=== PATIENT | female | born 1955 | race Caucasian/White ===

== ENCOUNTER 2016-08-01 04:09 | Inpatient (IN) | payer OTHER ==
[~2016-08-01] VITALS: Ht 167.6 cm; Wt 67.7 kg
[~2016-08-01 04:09] MED LIST: ALBUTEROL SULF8.5 GM IH; ALDACTONE50 MG PO; ANALGESIC325 M1 PO; ASPIR 8181 M1 PO; ASPIR-LOW81 MG PO; ASPIRIN325 MG PO; ATORVASTATIN CA20 MG PO; BUSPIRONE HCL15 MG PO; CALCIUM 600 +1 EAC1 PO; CATAPRES0.2 MG PO; CHLORDIAZEPOXID25 MG PO; CLONAZEPAM0.5 MG PO; CLONIDINE HCL0.1 MG PO; COUMADIN1 MG PO; CYMBALTA60 MG PO; Claritin,Alavart PO; DELZICOL400 MG PO; DULCOLAX10 MG PR; DULCOLAX5 MG PO; Depakote PO; ECOTRIN325 MG PO; ENDOCET 5-3251 EACH PO; FLUCONAZOLE100 MG PO; FLUOXETINE HCL40 MG PO; FOLIC ACID1 MG PO; Habitrol,Nicoderm CQ TD; JANTOVEN1 MG PO; KLONOPIN0.5 M1 PO; KLONOPIN1 MG PO; LIBRIUM25 MG PO; LINEZOLID600 MG PO; LIPITOR20 MG PO; LIPITOR80 MG PO; LO-DOSE ASPIRIN81 M1 PO; LOVENOX40 MG/0.4 SC; LOVENOX60 MG/0.6 SC; Lasix PO; MULTI-DAY VITA1 EACH PO; Melatonin PO; NITROSTAT0.4 MG SL; Nitrostat,NitroQuick SL; OMNICEF50 MG/1 ML PO; OXYGEN; PANTOPRAZOLE SO40 MG PO; PERCOCET 5/31 TABLET PO; PRILOSEC20 MG PO; PROTONIX40 MG PO; PROZAC40 MG PO; REMERON45 MG PO; SENEXON-S TABL1 EACH PO; SEROQUEL300 MG PO; SIMVASTATIN40 MG PO; SINEQUAN10 MG PO; SPIRIVA1 INHALATI IH; SPIRONOLACTONE50 MG PO; THERAGRAN1 TABLET PO; TRAMADOL HCL50 MG PO; TRAZODONE HCL50 MG PO; Theragran PO; Thiamine,Vitamin B1 PO; ULTRAM50 MG PO; VALIUM10 MG PO; VENTOLIN HFA18 GM IH; VITAMIN B-1100 MG PO; VITAMIN B12 100MCG PO; VITAMIN D1000 UNIT PO; Valium PO; XARELTO15 MG PO; ZANTAC150 MG PO; ZOFRAN4 MG PO; [UNRECOGNIZED DRUG - OTHER] TP; celeXA PO
[2016-08-01 05:39] LABS: CHLORIDE 104 mEq/L (99-109); POTASSIUM 3.3 mEq/L (3.7-5.4); SODIUM 137 mEq/L (136-147)
[2016-08-01 05:41] LABS: GLUCOSE 114 mg/dL (70-99)
[2016-08-01 05:43] LABS: ANION GAP 18 MEQ/L (2-14)
[2016-08-01 05:45] LABS: ALKALINE PHOSPHATASE 32 IU/L (3-129); GFR ESTIMATE (CALCULATED) 35 mL/min/
[2016-08-01 05:46] LABS: UREA NITROGEN (BUN) 17 mg/dL (9-23)
[2016-08-01 05:48] LABS: LIPASE 9 U/L (1.0-51.0); TROP-I INTERPRETATION NEGATIVE; TROPONIN-I 0.02 ng/mL (0.0-0.30)
[2016-08-01 05:50] LABS: INTER. NORMALIZED RATIO 1.4; PROTHROMBIN TIME 14.8 (9.2-11.2); PTT 42.5 (25-32)
[2016-08-01 06:24] LABS: HEMATOCRIT 42.1 % (36.0-46.0); MCH 36.1 PG (29.0-34.0); MCHC 34.4 G/DL (30.0-36.0); MCV 104.7 FL (83-99); NRBC (%) 0.3 /100 WBC (0-0); RBC DIS.WIDTH-CV 14.6 % (11.8-14.6); RBC DIS.WIDTH-SD 56.7 % (39-53); RED BLOOD COUNT 4.02 M/uL (3.80-5.20); WHITE BLOOD COUNT 9.3 K/uL (4.1-10.2)
[2016-08-01 06:34] LABS: CREATINE KINASE 1459 IU/L (1-294)
[2016-08-01] MEDS ORDERED: XARELTO20 MG PO (06:52)
[2016-08-01] MEDS ORDERED: QUETIAPINE FUM300 MG PO (06:55)
[2016-08-01] MEDS ORDERED: PROZAC20 MG PO (06:56)
[2016-08-01] MEDS ORDERED: TRAMADOL HCL50 MG PO (08:03)
[2016-08-01] MEDS ORDERED: VOLTAREN 1% GE100 GM TP (08:03)
[2016-08-01 08:06] LABS: ABS NEUTROPHIL COUNT 8.5; ANISOCYTOSIS 2+; BAND NEUTROPHILS 28.4 % (0-8.0); BURR CELLS 2+; EOSINOPHIL ABS CT 0; INSTRUMENT ABS NEUTROPHIL CT 8.2 K/uL; LYMPHOCYTES 2.8 % (15.0-45.0); MACROCYTES 2+; NUCLEATED RBC'S 1.8; PLAT.SUFFICIENCY DECREASED; PLATELET COUNT 91 K/uL (156-360); POIKILOCYTOSIS 3+; SEG.NEUTROPHILS 63.3 % (46.0-76.0)
[2016-08-01 14:50] VITALS: BP 112/73
[2016-08-01 15:15] LABS: INTER. NORMALIZED RATIO 1.3; PROTHROMBIN TIME 13.6 (9.2-11.2)
[2016-08-01 15:25] LABS: PTT 79.8 (25-32)
[2016-08-01 19:00] VITALS: BP 121/65
[2016-08-02 00:23] VITALS: BP 96/63
[2016-08-02 03:24] VITALS: BP 119/72
[2016-08-02 07:07] LABS: HEMATOCRIT 36.4 % (36.0-46.0); MCH 34.9 PG (29.0-34.0); MCHC 35.2 G/DL (30.0-36.0); MEAN PLAT.VOLUME 10.3 uM^3 (9.5-12.4); PLATELET COUNT 79 K/uL (156-360); RBC DIS.WIDTH-CV 14.1 % (11.8-14.6); RBC DIS.WIDTH-SD 51.5 % (39-53); RED BLOOD COUNT 3.67 M/uL (3.80-5.20)
[2016-08-02 07:11] LABS: MCV 99.2 FL (83-99); WHITE BLOOD COUNT 3.1 K/uL (4.1-10.2)
[2016-08-02 07:49] LABS: INTER. NORMALIZED RATIO 1.3; PROTHROMBIN TIME 12.9 (9.2-11.2)
[2016-08-02 07:51] LABS: ALKALINE PHOSPHATASE 23 IU/L (3-129); ANION GAP 14 MEQ/L (2-14); CHLORIDE 105 MEQ/L (99-109); CREATINE KINASE 780 IU/L (1-294); DIRECT BILIRUBIN 1.1 mg/dL (0.0-0.3); GFR ESTIMATE (CALCULATED) > 59 mL/min/; POTASSIUM 3.4 MEQ/L (3.7-5.4); SAMPLE HEMOLYSIS CHECK 0; SAMPLE ICTERIC CHECK 0; SAMPLE LIPEMIA CHECK 0; SODIUM 137 MEQ/L (136-147); TOTAL BILIRUBIN 1.6 MG/DL (0.0-1.0); UREA NITROGEN (BUN) 22 mg/dL (9-23)
[2016-08-02 07:52] LABS: GLUCOSE 76 mg/dL (70-99)
[2016-08-02 08:03] VITALS: BP 127/90
[2016-08-02 08:24] LABS: ABS NEUTROPHIL COUNT 2.9; ANISOCYTOSIS 2+; BAND NEUTROPHILS 13.8 % (0-8.0); BURR CELLS 2+; EOSINOPHIL ABS CT 0; INSTRUMENT ABS NEUTROPHIL CT 2.6 K/uL; LYMPHOCYTES 2.7 % (15.0-45.0); MACROCYTES 3+; METAMYELOCYTES 0.9 %; PLAT.SUFFICIENCY DECREASED; POIKILOCYTOSIS 2+; SEG.NEUTROPHILS 78.9 % (46.0-76.0)
[2016-08-02 17:12] VITALS: BP 100/61
[2016-08-02 20:01] VITALS: BP 102/66
[2016-08-02 22:20] LABS: AMPHETAMINES QUANT VALUE 0 NG/ML; BARBITUATES QUANT VALUE 0 NG/ML; BENZODIAZEPINES QUANT VALUE 0 NG/ML; BENZODIAZEPINES, URINE SCREEN Negative (200 ng/mL); PHENCYCLIDINE QUANT VALUE 0 NG/ML
[2016-08-02 23:27] VITALS: BP 99/57
[2016-08-03 05:06] VITALS: BP 91/54
[2016-08-03 07:35] LABS: INTER. NORMALIZED RATIO 1.2; PROTHROMBIN TIME 12.7 (9.2-11.2)
[2016-08-03 09:10] VITALS: BP 97/61
[2016-08-03 12:30] VITALS: BP 91/53
[2016-08-03 16:55] VITALS: BP 80/53
[2016-08-03 20:17] VITALS: BP 85/58
[2016-08-04 00:25] VITALS: BP 84/53
[2016-08-04 04:07] VITALS: BP 91/57
[2016-08-04 05:06] LABS: INTER. NORMALIZED RATIO 1.6; PROTHROMBIN TIME 16.7 (9.2-11.2)
[2016-08-04 08:03] VITALS: BP 100/60
[2016-08-04 10:01] LABS: HEMATOCRIT 28.8 % (36.0-46.0); MCH 35.3 PG (29.0-34.0); MCHC 35.8 G/DL (30.0-36.0); MCV 98.6 FL (83-99); RBC DIS.WIDTH-CV 14.8 % (11.8-14.6); RBC DIS.WIDTH-SD 53.3 % (39-53); RED BLOOD COUNT 2.92 M/uL (3.80-5.20); WHITE BLOOD COUNT 2.9 K/uL (4.1-10.2)
[2016-08-04 10:50] LABS: ABS NEUTROPHIL COUNT 2.5; ANISOCYTOSIS 1+; ATYPICAL LYMPHOCYTE 0.9 %; EOSINOPHIL ABS CT 0.1; EOSINOPHILS 2.6 % (0-5.0); INSTRUMENT ABS NEUTROPHIL CT 2.2 K/uL; LYMPHOCYTES 7.1 % (15.0-45.0); MACROCYTES 1+; MEAN PLAT.VOLUME 9.6 uM^3 (9.5-12.4); MYELOCYTES 0.9 %; PLAT.SUFFICIENCY DECREASED; SEG.NEUTROPHILS 87.6 % (46.0-76.0); TARGET CELLS 1+
[2016-08-04 10:51] LABS: PLATELET COUNT 53 K/uL (156-360)
[2016-08-04 11:49] VITALS: BP 83/51
[2016-08-04 16:35] VITALS: BP 90/54
[2016-08-05 00:18] VITALS: BP 90/54
[2016-08-05 06:29] LABS: INTER. NORMALIZED RATIO 2.8
[2016-08-05 06:33] LABS: PROTHROMBIN TIME 29.8 (9.2-11.2)
[2016-08-05 07:02] LABS: ANION GAP 13 MEQ/L (2-14); CHLORIDE 110 MEQ/L (99-109); GFR ESTIMATE (CALCULATED) > 59 mL/min/; GLUCOSE 52 mg/dL (70-99); SAMPLE HEMOLYSIS CHECK 0; SAMPLE ICTERIC CHECK 0; SAMPLE LIPEMIA CHECK 0; SODIUM 139 MEQ/L (136-147); UREA NITROGEN (BUN) 13 mg/dL (9-23)
[2016-08-05 07:06] LABS: ALKALINE PHOSPHATASE 64 IU/L (3-129); DIRECT BILIRUBIN 0.4 mg/dL (0.0-0.3); POTASSIUM 2.5 MEQ/L (3.7-5.4); TOTAL BILIRUBIN 0.8 MG/DL (0.0-1.0)
[2016-08-05 07:20] LABS: HEMATOCRIT 27.3 % (36.0-46.0); MCH 35.7 PG (29.0-34.0); MCHC 37.4 G/DL (30.0-36.0); MCV 95.5 FL (83-99); MEAN PLAT.VOLUME 10.6 uM^3 (9.5-12.4); PLATELET COUNT 65 K/uL (156-360); RBC DIS.WIDTH-SD 52.3 % (39-53); RED BLOOD COUNT 2.86 M/uL (3.80-5.20); WHITE BLOOD COUNT 3.6 K/uL (4.1-10.2)
[2016-08-05 07:57] VITALS: BP 119/68
[2016-08-05 10:03] LABS: BASE EXCESS -8.5 mEq/L (-3 to +3); BICARBONATE 14.3 mEq/L (22-26); CARBOXY HGB 1.7 % (0-5); COMMENTS - BLOOD GASES A+C+; METHEMOGLOBIN 1.7 % (0-1.5); PCO2 22 mm Hg (35-45); PO2 56 mm Hg (80-100); SITE RR; pH 7.42 (7.35-7.45)
[2016-08-05 10:04] LABS: DEVICE HFNC; O2 FLOW 7 L/MIN; TOTAL RESP RATE 24 resp/min
[2016-08-05 16:12] VITALS: BP 107/68
[2016-08-05 23:41] VITALS: BP 114/71
[2016-08-06 06:34] LABS: INTER. NORMALIZED RATIO 1.1; PROTHROMBIN TIME 11.4 (9.2-11.2)
[2016-08-06 06:56] LABS: ALKALINE PHOSPHATASE 67 IU/L (3-129); ANION GAP 14 MEQ/L (2-14); CHLORIDE 109 MEQ/L (99-109); DIRECT BILIRUBIN 0.7 mg/dL (0.0-0.3); GFR ESTIMATE (CALCULATED) > 59 mL/min/; GLUCOSE 74 mg/dL (70-99); POTASSIUM 2.7 MEQ/L (3.7-5.4); SAMPLE HEMOLYSIS CHECK 0; SAMPLE ICTERIC CHECK 0; SAMPLE LIPEMIA CHECK 0; SODIUM 138 MEQ/L (136-147); UREA NITROGEN (BUN) 10 mg/dL (9-23)
[2016-08-06 06:58] LABS: TOTAL BILIRUBIN 1.3 MG/DL (0.0-1.0)
[2016-08-06 07:20] LABS: MCH 36.2 PG (29.0-34.0); MEAN PLAT.VOLUME 10.9 uM^3 (9.5-12.4); PLATELET COUNT 69 K/uL (156-360); RBC DIS.WIDTH-CV 15.3 % (11.8-14.6); RED BLOOD COUNT 2.93 M/uL (3.80-5.20); WHITE BLOOD COUNT 8.2 K/uL (4.1-10.2)
[2016-08-06 07:22] LABS: MCV 109 FL (83-99)
[2016-08-06 07:23] LABS: MCHC 33.1 G/DL (30.0-36.0)
[2016-08-06 08:01] VITALS: BP 108/68
[2016-08-06 11:59] LABS: C DIFF TOXIN NEGATIVE (NEGATIVE)
[2016-08-06 12:00] LABS: PROBE CHECK PASS; SPECIMEN PROCESSING CONTROL PASS
[2016-08-06 17:12] VITALS: BP 116/71
[2016-08-06 23:42] VITALS: BP 117/72
[2016-08-07 05:18] LABS: HEMATOCRIT 28.4 % (36.0-46.0); MCH 35.3 PG (29.0-34.0); MCHC 37.3 G/DL (30.0-36.0); MEAN PLAT.VOLUME 11.5 uM^3 (9.5-12.4); PLATELET COUNT 67 K/uL (156-360); RBC DIS.WIDTH-CV 15.5 % (11.8-14.6); RBC DIS.WIDTH-SD 53.1 % (39-53)
[2016-08-07 05:20] LABS: MCV 94.7 FL (83-99)
[2016-08-07 05:26] LABS: INTER. NORMALIZED RATIO 1.1; PROTHROMBIN TIME 11.6 (9.2-11.2)
[2016-08-07 06:36] LABS: ALKALINE PHOSPHATASE 62 IU/L (3-129); ANION GAP 10 MEQ/L (2-14); CHLORIDE 112 MEQ/L (99-109); DIRECT BILIRUBIN 0.8 mg/dL (0.0-0.3); GFR ESTIMATE (CALCULATED) > 59 mL/min/; GLUCOSE 82 mg/dL (70-99); POTASSIUM 3.1 MEQ/L (3.7-5.4); SAMPLE HEMOLYSIS CHECK 0; SAMPLE ICTERIC CHECK 0; SAMPLE LIPEMIA CHECK 0; SODIUM 139 MEQ/L (136-147); TOTAL BILIRUBIN 1.2 MG/DL (0.0-1.0); UREA NITROGEN (BUN) 9 mg/dL (9-23)
[2016-08-07 08:28] VITALS: BP 124/76
[2016-08-07 13:39] LABS: BASE EXCESS -4.7 mEq/L (-3 to +3); BICARBONATE 17.5 mEq/L (22-26); CARBOXY HGB 2.2 % (0-5); COMMENTS - BLOOD GASES A+C+; DEVICE HFNC; MECHANICAL RATE 20 resp/min; METHEMOGLOBIN 1.3 % (0-1.5); O2 FLOW 15 L/MIN; PCO2 23 mm Hg (35-45); PO2 59 mm Hg (80-100); SITE RRA; pH 7.49 (7.35-7.45)
[2016-08-07 16:12] VITALS: BP 117/81
[2016-08-07 20:05] VITALS: BP 110/70
[2016-08-07 23:52] VITALS: BP 109/71
[2016-08-08 05:05] LABS: HEMATOCRIT 26.7 % (36.0-46.0); MCH 35.7 PG (29.0-34.0); MCHC 37.1 G/DL (30.0-36.0); MCV 96.4 FL (83-99); MEAN PLAT.VOLUME 11.7 uM^3 (9.5-12.4); PLATELET COUNT 73 K/uL (156-360); RBC DIS.WIDTH-CV 15.5 % (11.8-14.6); RBC DIS.WIDTH-SD 53.9 % (39-53); RED BLOOD COUNT 2.77 M/uL (3.80-5.20); WHITE BLOOD COUNT 9.2 K/uL (4.1-10.2)
[2016-08-08 05:13] LABS: INTER. NORMALIZED RATIO 1.3; PROTHROMBIN TIME 13.3 (9.2-11.2)
[2016-08-08 05:33] LABS: ANION GAP 10 MEQ/L (2-14); CHLORIDE 111 MEQ/L (99-109); GFR ESTIMATE (CALCULATED) > 59 mL/min/; GLUCOSE 80 mg/dL (70-99); POTASSIUM 3.3 MEQ/L (3.7-5.4); SAMPLE HEMOLYSIS CHECK 0; SAMPLE ICTERIC CHECK 0; SAMPLE LIPEMIA CHECK 0; SODIUM 138 MEQ/L (136-147); UREA NITROGEN (BUN) 8 mg/dL (9-23)
[2016-08-08 08:22] VITALS: BP 110/65
[2016-08-08 16:24] VITALS: BP 124/70
[2016-08-08 23:31] VITALS: BP 119/72
[2016-08-09 03:28] VITALS: BP 100/57
[2016-08-09 04:53] LABS: HEMATOCRIT 25.2 % (36.0-46.0); MCH 35.3 PG (29.0-34.0); MCHC 37.3 G/DL (30.0-36.0); MCV 94.7 FL (83-99); MEAN PLAT.VOLUME 11.2 uM^3 (9.5-12.4); PLATELET COUNT 75 K/uL (156-360); RBC DIS.WIDTH-CV 15.4 % (11.8-14.6); RBC DIS.WIDTH-SD 52.8 % (39-53); RED BLOOD COUNT 2.66 M/uL (3.80-5.20); WHITE BLOOD COUNT 9.5 K/uL (4.1-10.2)
[2016-08-09 05:00] LABS: INTER. NORMALIZED RATIO 1.7; PROTHROMBIN TIME 17.3 (9.2-11.2)
[2016-08-09 05:12] LABS: CHLORIDE 110 mEq/L (99-109); POTASSIUM 3.3 mEq/L (3.7-5.4); SODIUM 136 mEq/L (136-147)
[2016-08-09 05:14] LABS: GLUCOSE 82 mg/dL (70-99)
[2016-08-09 05:16] LABS: ANION GAP 9 MEQ/L (2-14)
[2016-08-09 05:18] LABS: GFR ESTIMATE (CALCULATED) > 59 mL/min/
[2016-08-09 05:19] LABS: UREA NITROGEN (BUN) 7 mg/dL (9-23)
[2016-08-09 06:54] LABS: ALKALINE PHOSPHATASE 65 IU/L (3-129)
[2016-08-09 06:57] LABS: DIRECT BILIRUBIN 0.7 mg/dL (0.0-0.3)
[2016-08-09 07:51] VITALS: BP 106/62
[2016-08-09 12:15] VITALS: BP 106/68
[2016-08-09 16:11] VITALS: BP 112/72
[2016-08-09 23:33] VITALS: BP 96/62
[2016-08-10 03:44] VITALS: BP 104/71
[2016-08-10 05:57] LABS: INTER. NORMALIZED RATIO 1.5; PROTHROMBIN TIME 15.2 (9.2-11.2)
[2016-08-10 06:14] LABS: ALKALINE PHOSPHATASE 57 IU/L (3-129); ANION GAP 8 MEQ/L (2-14); CHLORIDE 109 MEQ/L (99-109); DIRECT BILIRUBIN 0.4 mg/dL (0.0-0.3); GFR ESTIMATE (CALCULATED) > 59 mL/min/; GLUCOSE 72 mg/dL (70-99); POTASSIUM 3.5 MEQ/L (3.7-5.4); SAMPLE HEMOLYSIS CHECK 0; SAMPLE ICTERIC CHECK 0; SAMPLE LIPEMIA CHECK 0; SODIUM 137 MEQ/L (136-147); UREA NITROGEN (BUN) 6 mg/dL (9-23)
[2016-08-10 06:17] LABS: TOTAL BILIRUBIN 0.8 MG/DL (0.0-1.0)
[2016-08-10 06:25] LABS: HEMATOCRIT 24.1 % (36.0-46.0); MCH 35.5 PG (29.0-34.0); MCHC 36.5 G/DL (30.0-36.0); MCV 97.2 FL (83-99); MEAN PLAT.VOLUME 11.4 uM^3 (9.5-12.4); PLATELET COUNT 72 K/uL (156-360); RBC DIS.WIDTH-SD 56.2 % (39-53); RED BLOOD COUNT 2.48 M/uL (3.80-5.20)
[2016-08-10 06:26] LABS: WHITE BLOOD COUNT 6.5 K/uL (4.1-10.2)
[2016-08-10 07:50] VITALS: BP 106/69
[2016-08-10 12:25] VITALS: BP 113/74
[2016-08-10 15:56] VITALS: BP 108/65
[2016-08-10 20:18] VITALS: BP 113/71
[2016-08-10 23:06] VITALS: BP 108/68
[2016-08-11 04:36] VITALS: BP 111/66
[2016-08-11 06:14] LABS: EOSINOPHIL (%) 2.7 % (0-5); EOSINOPHIL COUNT 0.2 K/uL (0-0.3); HEMATOCRIT 22.3 % (36.0-46.0); IMMATURE GRANULOCYTE (%) 2.2 % (0.0-0.7); IMMATURE GRANULOCYTE COUNT 0.1 K/uL; INSTRUMENT ABS NEUTROPHIL CT 4.8 K/uL; MCH 34.9 PG (29.0-34.0); MCHC 35.9 G/DL (30.0-36.0); MCV 97.4 FL (83-99); MEAN PLAT.VOLUME 10.9 uM^3 (9.5-12.4); MONOCYTE (%) 4.6 % (3-12); MONOCYTE COUNT 0.3 K/uL (0-0.8); NEUTROPHIL COUNT 4.8 K/uL (1.8-6.4); PLATELET COUNT 82 K/uL (156-360); RBC DIS.WIDTH-CV 15.9 % (11.8-14.6); RBC DIS.WIDTH-SD 57.4 % (39-53); RED BLOOD COUNT 2.29 M/uL (3.80-5.20); WHITE BLOOD COUNT 6.4 K/uL (4.1-10.2)
[2016-08-11 06:23] LABS: INTER. NORMALIZED RATIO 1.4; PROTHROMBIN TIME 14.7 (9.2-11.2)
[2016-08-11 07:05] LABS: ALKALINE PHOSPHATASE 61 IU/L (3-129); ANION GAP 7 MEQ/L (2-14); CHLORIDE 110 MEQ/L (99-109); GFR ESTIMATE (CALCULATED) > 59 mL/min/; GLUCOSE 74 mg/dL (70-99); POTASSIUM 3.6 MEQ/L (3.7-5.4); SAMPLE HEMOLYSIS CHECK 0; SAMPLE ICTERIC CHECK 0; SAMPLE LIPEMIA CHECK 0; SODIUM 137 MEQ/L (136-147); TOTAL BILIRUBIN 0.7 MG/DL (0.0-1.0); UREA NITROGEN (BUN) 5 mg/dL (9-23)
[2016-08-11 08:01] VITALS: BP 110/71
[2016-08-11 11:08] VITALS: BP 91/59
[2016-08-11 16:07] VITALS: BP 100/61
[2016-08-11 20:34] VITALS: BP 100/55
[2016-08-11 23:35] VITALS: BP 100/64
[2016-08-12 04:49] VITALS: BP 99/60
[2016-08-12 05:26] LABS: HEMATOCRIT 22.3 % (36.0-46.0); MCH 35.6 PG (29.0-34.0); MCHC 35.9 G/DL (30.0-36.0); MCV 99.1 FL (83-99); MEAN PLAT.VOLUME 11.6 uM^3 (9.5-12.4); PLATELET COUNT 83 K/uL (156-360); RBC DIS.WIDTH-CV 16.5 % (11.8-14.6); RBC DIS.WIDTH-SD 59.2 % (39-53); RED BLOOD COUNT 2.25 M/uL (3.80-5.20); WHITE BLOOD COUNT 5.7 K/uL (4.1-10.2)
[2016-08-12 05:37] LABS: INTER. NORMALIZED RATIO 1.2; PROTHROMBIN TIME 11.9 (9.2-11.2)
[2016-08-12 05:53] LABS: ALKALINE PHOSPHATASE 61 IU/L (3-129); ANION GAP 6 MEQ/L (2-14); CHLORIDE 110 MEQ/L (99-109); GFR ESTIMATE (CALCULATED) > 59 mL/min/; GLUCOSE 78 mg/dL (70-99); POTASSIUM 4.6 MEQ/L (3.7-5.4); SAMPLE HEMOLYSIS CHECK 0; SAMPLE ICTERIC CHECK 0; SAMPLE LIPEMIA CHECK 0; SODIUM 137 MEQ/L (136-147); TOTAL BILIRUBIN 0.6 MG/DL (0.0-1.0); UREA NITROGEN (BUN) 5 mg/dL (9-23)
[2016-08-12 07:46] VITALS: BP 100/65
[2016-08-12 12:16] VITALS: BP 97/61
[2016-08-12 16:30] VITALS: BP 105/66
[2016-08-12 19:18] VITALS: BP 90/62
[2016-08-12 23:40] VITALS: BP 144/65
[2016-08-13 03:22] VITALS: BP 111/72
[2016-08-13 06:12] LABS: INTER. NORMALIZED RATIO 1.1; PROTHROMBIN TIME 11.5 (9.2-11.2)
[2016-08-13 06:13] LABS: HEMATOCRIT 22.3 % (36.0-46.0); MCH 35.4 PG (29.0-34.0); MCHC 35.9 G/DL (30.0-36.0); MCV 98.7 FL (83-99); MEAN PLAT.VOLUME 11.4 uM^3 (9.5-12.4); RBC DIS.WIDTH-CV 16.3 % (11.8-14.6); RBC DIS.WIDTH-SD 58.9 % (39-53); RED BLOOD COUNT 2.26 M/uL (3.80-5.20); WHITE BLOOD COUNT 5.6 K/uL (4.1-10.2)
[2016-08-13 06:15] LABS: PLATELET COUNT 133 K/uL (156-360)
[2016-08-13 06:35] LABS: ANION GAP 5 MEQ/L (2-14); CHLORIDE 106 MEQ/L (99-109); GFR ESTIMATE (CALCULATED) > 59 mL/min/; GLUCOSE 73 mg/dL (70-99); POTASSIUM 4.4 MEQ/L (3.7-5.4); SAMPLE HEMOLYSIS CHECK 0; SAMPLE ICTERIC CHECK 0; SAMPLE LIPEMIA CHECK 0; SODIUM 135 MEQ/L (136-147); UREA NITROGEN (BUN) 5 mg/dL (9-23)
[2016-08-13 07:16] VITALS: BP 107/75
[2016-08-13 11:00] VITALS: BP 103/65
[2016-08-13 13:13] LABS: TROP-I INTERPRETATION NEGATIVE
[2016-08-13 16:19] VITALS: BP 110/63
[2016-08-13 20:30] VITALS: BP 112/65
[2016-08-14 00:06] VITALS: BP 101/69
[2016-08-14 05:30] VITALS: BP 111/69
[2016-08-14 06:50] LABS: ANION GAP 6 MEQ/L (2-14); CHLORIDE 105 MEQ/L (99-109); GFR ESTIMATE (CALCULATED) > 59 mL/min/; GLUCOSE 81 mg/dL (70-99); POTASSIUM 4.1 MEQ/L (3.7-5.4); SAMPLE HEMOLYSIS CHECK 0; SAMPLE ICTERIC CHECK 0; SAMPLE LIPEMIA CHECK 0; SODIUM 138 MEQ/L (136-147); UREA NITROGEN (BUN) 5 mg/dL (9-23)
[2016-08-14 06:54] LABS: INTER. NORMALIZED RATIO 1.1; PROTHROMBIN TIME 11.4 (9.2-11.2)
[2016-08-14 08:07] VITALS: BP 108/66
[2016-08-14 11:51] VITALS: BP 95/59
[2016-08-14 16:26] VITALS: BP 87/54
[2016-08-14 20:21] VITALS: BP 93/60
[2016-08-15 00:29] VITALS: BP 90/55
[2016-08-15 04:31] VITALS: BP 93/56
[2016-08-15 08:24] VITALS: BP 121/69
[2016-08-15 12:01] VITALS: BP 83/54
[2016-08-15 15:41] VITALS: BP 90/62
[2016-08-15 15:52] LABS: INTER. NORMALIZED RATIO 1.2; PROTHROMBIN TIME 12.7 (9.2-11.2)
[2016-08-15 18:17] LABS: MCH 34.6 PG (29.0-34.0); MCHC 34.6 G/DL (30.0-36.0); PLATELET COUNT 341 K/uL (156-360); RBC DIS.WIDTH-SD 58.6 % (39-53); WHITE BLOOD COUNT 4.3 K/uL (4.1-10.2)
[2016-08-15 19:47] VITALS: BP 98/60
[2016-08-16 00:18] VITALS: BP 104/65
[2016-08-16 04:30] VITALS: BP 109/58
[2016-08-16 08:15] LABS: MCHC 34.6 G/DL (30.0-36.0); MCV 101.3 FL (83-99); PLATELET COUNT 389 K/uL (156-360); RBC DIS.WIDTH-CV 16.3 % (11.8-14.6); RBC DIS.WIDTH-SD 60.2 % (39-53); RED BLOOD COUNT 2.37 M/uL (3.80-5.20); WHITE BLOOD COUNT 4.1 K/uL (4.1-10.2)
[2016-08-16 08:33] VITALS: BP 178/97
[2016-08-16 09:17] LABS: ANION GAP 6 MEQ/L (2-14); CHLORIDE 104 MEQ/L (99-109); GFR ESTIMATE (CALCULATED) > 59 mL/min/; GLUCOSE 76 mg/dL (70-99); SAMPLE HEMOLYSIS CHECK 0; SAMPLE ICTERIC CHECK 0; SAMPLE LIPEMIA CHECK 0; SODIUM 139 MEQ/L (136-147); UREA NITROGEN (BUN) 8 mg/dL (9-23)
[2016-08-16 09:25] LABS: INTER. NORMALIZED RATIO 1.3; PROTHROMBIN TIME 13.7 (9.2-11.2)
[2016-08-16 16:25] VITALS: BP 100/66
[2016-08-16 20:17] VITALS: BP 104/66
[2016-08-16 23:38] VITALS: BP 98/74
[2016-08-17 04:52] VITALS: BP 106/64
[2016-08-17 07:40] VITALS: BP 103/69
[2016-08-17 08:06] LABS: BASOPHIL COUNT 0.1 K/uL (0-0.1); EOSINOPHIL COUNT 0.2 K/uL (0-0.3); HEMATOCRIT 26.1 % (36.0-46.0); IMMATURE GRANULOCYTE (%) 1.4 % (0.0-0.7); IMMATURE GRANULOCYTE COUNT 0.1 K/uL; INSTRUMENT ABS NEUTROPHIL CT 2.8 K/uL; LYMPHOCYTE COUNT 1.4 K/uL (1.0-2.8); MCH 34.8 PG (29.0-34.0); MCHC 34.1 G/DL (30.0-36.0); MEAN PLAT.VOLUME 9.3 uM^3 (9.5-12.4); MONOCYTE (%) 9.7 % (3-12); MONOCYTE COUNT 0.5 K/uL (0-0.8); NEUTROPHIL (%) 57.3 % (45-76); NEUTROPHIL COUNT 2.8 K/uL (1.8-6.4); PLATELET COUNT 432 K/uL (156-360); RBC DIS.WIDTH-CV 15.9 % (11.8-14.6); RBC DIS.WIDTH-SD 59.8 % (39-53); RED BLOOD COUNT 2.56 M/uL (3.80-5.20)
[2016-08-17 08:37] LABS: ALKALINE PHOSPHATASE 67 IU/L (3-129); ANION GAP 6 MEQ/L (2-14); CHLORIDE 102 MEQ/L (99-109); GFR ESTIMATE (CALCULATED) > 59 mL/min/; GLUCOSE 84 mg/dL (70-99); POTASSIUM 4.2 MEQ/L (3.7-5.4); SAMPLE HEMOLYSIS CHECK 0; SAMPLE ICTERIC CHECK 0; SAMPLE LIPEMIA CHECK 0; SODIUM 137 MEQ/L (136-147); UREA NITROGEN (BUN) 9 mg/dL (9-23)
[2016-08-17 08:41] LABS: TOTAL BILIRUBIN 0.4 MG/DL (0.0-1.0)
[2016-08-17 09:31] LABS: INTER. NORMALIZED RATIO 1.7
[2016-08-17 10:43] VITALS: BP 109/70
[2016-08-17 16:08] VITALS: BP 98/59
[2016-08-17 23:20] VITALS: BP 110/64
[2016-08-18 06:51] LABS: BASOPHIL COUNT 0.1 K/uL (0-0.1); EOSINOPHIL (%) 2.8 % (0-5); EOSINOPHIL COUNT 0.1 K/uL (0-0.3); HEMATOCRIT 28.7 % (36.0-46.0); IMMATURE GRANULOCYTE COUNT 0.1 K/uL; INSTRUMENT ABS NEUTROPHIL CT 2.4 K/uL; LYMPHOCYTE COUNT 1.4 K/uL (1.0-2.8); MCH 34.4 PG (29.0-34.0); MCHC 33.1 G/DL (30.0-36.0); MEAN PLAT.VOLUME 9.4 uM^3 (9.5-12.4); MONOCYTE (%) 10.9 % (3-12); MONOCYTE COUNT 0.5 K/uL (0-0.8); NEUTROPHIL (%) 51.4 % (45-76); NEUTROPHIL COUNT 2.4 K/uL (1.8-6.4); PLATELET COUNT 492 K/uL (156-360); RBC DIS.WIDTH-SD 61.9 % (39-53); RED BLOOD COUNT 2.76 M/uL (3.80-5.20); WHITE BLOOD COUNT 4.6 K/uL (4.1-10.2)
[2016-08-18 07:08] LABS: INTER. NORMALIZED RATIO 1.9; PROTHROMBIN TIME 20.1 (9.2-11.2)
[2016-08-18 07:20] VITALS: BP 111/67
[2016-08-18 07:21] LABS: ALKALINE PHOSPHATASE 76 IU/L (3-129); ANION GAP 7 MEQ/L (2-14); CHLORIDE 103 MEQ/L (99-109); GFR ESTIMATE (CALCULATED) > 59 mL/min/; GLUCOSE 94 mg/dL (70-99); POTASSIUM 4.5 MEQ/L (3.7-5.4); SAMPLE HEMOLYSIS CHECK 0; SAMPLE ICTERIC CHECK 0; SAMPLE LIPEMIA CHECK 0; SODIUM 138 MEQ/L (136-147); TOTAL BILIRUBIN 0.4 MG/DL (0.0-1.0); UREA NITROGEN (BUN) 11 mg/dL (9-23)
[2016-08-18 15:59] VITALS: BP 96/53
[2016-08-19 00:04] VITALS: BP 111/71
[2016-08-19 04:26] VITALS: BP 109/70
[2016-08-19 07:02] LABS: INTER. NORMALIZED RATIO 1.8; PROTHROMBIN TIME 18.2 (9.2-11.2)
[2016-08-19 07:35] VITALS: BP 115/63
[2016-08-19 11:23] VITALS: BP 102/63
[2016-08-19] MEDS ORDERED: BENADRYL25 MG PO (13:13)
[2016-08-19] MEDS ORDERED: CEPHALEXIN500 MG PO (13:13)
[2016-08-19] MEDS ORDERED: XARELTO15 MG PO (13:17)
[2016-08-19 15:15] VITALS: BP 108/66
== END 2016-08-19 17:23 | DRG 872 ==
LOC: EME 04:09 → 3EAST 09:28 → EDOF 09:28 → 4EAST 14:19 → 3EAST 08-03 14:45
PROVIDERS: Emergency Medicine; Internal Medicine; Internal Medicine Hematology & Oncology; Internal Medicine Pulmonary Disease; Nurse Practitioner Adult Health; Pediatrics; Physician Assistant; Physician Assistant Medical
DX: A41.9 Sepsis, unspecified organism (principal); K92.2 Gastrointestinal hemorrhage, unspecified; L03.114 Cellulitis of left upper limb; I10 Essential (primary) hypertension; J44.9 Chronic obstructive pulmonary disease, unspecified; F41.9 Anxiety disorder, unspecified; F10.10 Alcohol abuse, uncomplicated; E78.5 Hyperlipidemia, unspecified; K21.9 Gastro-esophageal reflux disease without esophagitis; F19.10 Other psychoactive substance abuse, uncomplicated; I50.9 Heart failure, unspecified; F17.210 Nicotine dependence, cigarettes, uncomplicated; I48.91 Unspecified atrial fibrillation; D69.6 Thrombocytopenia, unspecified; I25.10 Atherosclerotic heart disease of native coronary artery without angina pectoris; F32.9 Major depressive disorder, single episode, unspecified; Z86.711 Personal history of pulmonary embolism; Z86.718 Personal history of other venous thrombosis and embolism; Z95.5 Presence of coronary angioplasty implant and graft; Z91.14 Patient's other noncompliance with medication regimen; I25.2 Old myocardial infarction
CPT/HCPCS: 36600; 70450; 71010; 71020; 71275; 73030; 73090; 73130; 73200; 73206; 73220; 73590; 74177; 80048; 80048 91; 80053; 80069; 80076; 80306 90; 82140; 82330; 82550; 82803; 83605; 83690; 83880; 84484; 85025; 85027; 85610; 85730; 87040; 87070; 87075; 87077; 87186; 87205; 87493; 87801; 93005; 93306; 94010; 94640; 94640 76; 94667; 94668; 94760; 94799; 97530 GO; 97530 GP; 99202; 99281; 99285; G0480; J0610; J0690; J1200; J1650; J2185; J2405; J2765; J3010; J3420; J3475; J3480; J7030; J7040; J7050

== ENCOUNTER 2016-08-27 08:47 | Day surgery (SDC) | payer OTHER ==
[~2016-08-27] VITALS: Ht 160 cm; Wt 62.1 kg
[~2016-08-27 08:47] MED LIST changes: +BENADRYL25 MG PO; +CEPHALEXIN500 MG PO; +NORCO 5/3251 TABLET PO; +PROZAC20 MG PO; +QUETIAPINE FUM300 MG PO; +TYLENOL EXTRA500 MG PO; +VOLTAREN 1% GE100 GM TP; +XARELTO20 MG PO
== END 2016-08-27 09:15 ==
LOC: SDC 08:47
PROC: 0JJ Subcutaneous Tissue and Fascia, Inspection (ICD-10-PCS; principal; 2016-08-27)
DX: S41.102A Unspecified open wound of left upper arm, initial encounter (principal); Z53.09 Procedure and treatment not carried out because of other contraindication; I51.9 Heart disease, unspecified

== ENCOUNTER 2016-08-31 17:16 | Emergency (ER) | payer OTHER ==
[~2016-08-31] VITALS: Ht 170.2 cm; Wt 68.4 kg
[2016-08-31 18:20] LABS: BASOPHIL COUNT 0.1 K/uL (0-0.1); EOSINOPHIL (%) 0.6 % (0-5); EOSINOPHIL COUNT 0.1 K/uL (0-0.3); HEMATOCRIT 34.1 % (36.0-46.0); IMMATURE GRANULOCYTE (%) 0.6 % (0.0-0.7); IMMATURE GRANULOCYTE COUNT 0.1 K/uL; INSTRUMENT ABS NEUTROPHIL CT 9.1 K/uL; LYMPHOCYTE COUNT 1.8 K/uL (1.0-2.8); MCH 33.2 PG (29.0-34.0); MCHC 33.1 G/DL (30.0-36.0); MCV 100.3 FL (83-99); MEAN PLAT.VOLUME 9.4 uM^3 (9.5-12.4); MONOCYTE COUNT 0.5 K/uL (0-0.8); NEUTROPHIL (%) 78.9 % (45-76); NEUTROPHIL COUNT 9.1 K/uL (1.8-6.4); PLATELET COUNT 346 K/uL (156-360); RBC DIS.WIDTH-CV 15.2 % (11.8-14.6); RBC DIS.WIDTH-SD 56.2 % (39-53); WHITE BLOOD COUNT 11.6 K/uL (4.1-10.2)
[2016-08-31 18:28] LABS: CHLORIDE 103 mEq/L (99-109); POTASSIUM 4.3 mEq/L (3.7-5.4); SODIUM 137 mEq/L (136-147)
[2016-08-31 18:30] LABS: GLUCOSE 66 mg/dL (70-99)
[2016-08-31 18:31] LABS: ANION GAP 13 MEQ/L (2-14)
[2016-08-31 18:33] LABS: GFR ESTIMATE (CALCULATED) > 59 mL/min/
[2016-08-31 18:34] LABS: UREA NITROGEN (BUN) 11 mg/dL (9-23)
[2016-08-31 18:44] LABS: INTER. NORMALIZED RATIO 1.5; PROTHROMBIN TIME 15.4 (9.2-11.2); PTT 48.8 (25-32)
[2016-08-31 18:46] LABS: ADD MIUA? NO; BILIRUBIN NEGATIVE; BLOOD NEGATIVE; COLOR YELLOW ((YELLOW)); GLUCOSE (STRIP) NEGATIVE; KETONES NEGATIVE; LEUKOCYTES NEGATIVE; NITRITE NEGATIVE; PROTEIN (STRIP) NEGATIVE; SPECIFIC GRAVITY 1.016 (1.000-1.030); UCUL ADDED? NO; UROBILINOGEN 0.2 MG/DL (0.2-1.0)
[2016-08-31] MEDS ORDERED: SALINE NASAL SP45 ML BOTH NARES (20:58)
[2016-08-31] MEDS ORDERED: AFRIN,GENASAL D15 ML BOTH NARES (20:59)
[2016-08-31] MEDS ORDERED: DURAGESIC25 MCG TD (20:59)
[2016-08-31] MEDS ORDERED: NEURONTIN300 MG PO (21:01)
[2016-08-31] MEDS ORDERED: BENADRYL25 MG PO (21:06)
[2016-08-31] MEDS ORDERED: XARELTO15 MG PO (21:07)
[2016-08-31] MEDS ORDERED: XARELTO20 MG PO (21:08)
[2016-08-31 23:23] VITALS: BP 103/67
== END 2016-08-31 23:28 | disposition short-term general hospital (02) ==
LOC: EME 17:16
PROVIDERS: Emergency Medicine
PROC: 05HP33Z Insertion of Infusion Device into Right External Jugular Vein, Percutaneous Approach (ICD-10-PCS; principal; 2016-08-31)
DX: A41.9 Sepsis, unspecified organism (principal); I95.9 Hypotension, unspecified; L03.114 Cellulitis of left upper limb; I10 Essential (primary) hypertension; I25.2 Old myocardial infarction; K21.9 Gastro-esophageal reflux disease without esophagitis; F17.200 Nicotine dependence, unspecified, uncomplicated; Z98.61 Coronary angioplasty status
CPT/HCPCS: 71010; 71020; 73200; 80048; 81003; 83605; 85025; 85610; 85730; 87040; 93005; 99281; 99285; J0692; J2020; J7030; J7050

== ENCOUNTER 2016-09-13 21:22 | Observation (INO) | payer OTHER ==
[~2016-09-13] VITALS: Ht 167.6 cm; Wt 69.2 kg
[~2016-09-13 21:22] MED LIST changes: +AFRIN,GENASAL D15 ML BOTH NARES; +DURAGESIC25 MCG TD; +NEURONTIN300 MG PO; +SALINE NASAL SP45 ML BOTH NARES
[2016-09-13 22:33] LABS: EOSINOPHIL (%) 0.3 % (0-5); HEMATOCRIT 29.6 % (36.0-46.0); IMMATURE GRANULOCYTE (%) 0.3 % (0.0-0.7); INSTRUMENT ABS NEUTROPHIL CT 7.8 K/uL; LYMPHOCYTE COUNT 1.6 K/uL (1.0-2.8); MCH 31.8 PG (29.0-34.0); MCHC 33.1 G/DL (30.0-36.0); MEAN PLAT.VOLUME 8.5 uM^3 (9.5-12.4); MONOCYTE (%) 3.9 % (3-12); MONOCYTE COUNT 0.4 K/uL (0-0.8); NEUTROPHIL (%) 79.2 % (45-76); NEUTROPHIL COUNT 7.8 K/uL (1.8-6.4); PLATELET COUNT 245 K/uL (156-360); RBC DIS.WIDTH-CV 14.9 % (11.8-14.6); RBC DIS.WIDTH-SD 52.3 % (39-53); RED BLOOD COUNT 3.08 M/uL (3.80-5.20); WHITE BLOOD COUNT 9.9 K/uL (4.1-10.2)
[2016-09-13 22:34] LABS: MCV 96.1 FL (83-99)
[2016-09-13 22:39] LABS: CHLORIDE 106 mEq/L (99-109); POTASSIUM 4.4 mEq/L (3.7-5.4); SODIUM 137 mEq/L (136-147)
[2016-09-13 22:40] LABS: GLUCOSE 99 mg/dL (70-99)
[2016-09-13 22:42] LABS: ANION GAP 10 MEQ/L (2-14)
[2016-09-13 22:44] LABS: GFR ESTIMATE (CALCULATED) > 59 mL/min/
[2016-09-13 22:45] LABS: UREA NITROGEN (BUN) 13 mg/dL (9-23)
[2016-09-13 23:53] LABS: ADD MIUA? YES; BILIRUBIN NEGATIVE; BLOOD NEGATIVE; COLOR YELLOW ((YELLOW)); GLUCOSE (STRIP) NEGATIVE; KETONES NEGATIVE; LEUKOCYTES LARGE; NITRITE NEGATIVE; PROTEIN (STRIP) NEGATIVE; SPECIFIC GRAVITY 1.008 (1.000-1.030); UROBILINOGEN 0.2 MG/DL (0.2-1.0)
[2016-09-13 23:57] LABS: BACTERIA RARE /HPF; EPITHELIAL CELLS 1+ /HPF; MUCUS NONE SEEN /LPF; RED BLOOD CELLS 0-5 /HPF (0-5); UCUL ADDED? NO
[2016-09-14] MEDS ORDERED: DOXYCYCLINE HY100 MG PO (00:18)
[2016-09-14] MEDS ORDERED: XARELTO10 MG PO (00:21)
[2016-09-14] MEDS ORDERED: NORCO 5/3251 TABLET PO ×2 (00:22)
[2016-09-14] MEDS ORDERED: VENTOLIN HFA18 GM IH (00:23)
[2016-09-14] MEDS ORDERED: TYLENOL EXTRA500 MG PO (00:24)
[2016-09-14 01:38] LABS: AMPHETAMINE NEGATIVE (500 ng/mL); BENZODIAZEPINES NEGATIVE (150 ng/mL); COCAINE NEGATIVE (150 ng/mL); METHAMPHETAMINE NEGATIVE (500 ng/mL); OPIATES (MORPHINE) PRESUMPTIVE POSITIVE (100 ng/mL); PHENCYCLIDINE NEGATIVE (25 ng/mL); THC CANNABINOIDS NEGATIVE (50 ng/mL)
[2016-09-14 01:39] LABS: ADD MEDTOX COMMENT Y; BARBITURATES NEGATIVE (200 ng/mL); INTERNAL CONTROLS VALID? YES; METHADONE NEGATIVE (200 ng/mL); OXYCODONE NEGATIVE (100 ng/mL); PROPOXYPHENE NEGATIVE (300 ng/mL); TRICYCLIC ANTIDEPRESSANTS PRESUMPTIVE POSITIVE (300 ng/mL)
[2016-09-14 02:55] VITALS: BP 89/46
[2016-09-14 04:07] VITALS: BP 100/63
[2016-09-14 06:17] VITALS: BP 93/61
[2016-09-14 07:00] VITALS: BP 109/67
[2016-09-14 07:43] LABS: HEMATOCRIT 27.7 % (36.0-46.0); MCH 32.4 PG (29.0-34.0); MCHC 32.5 G/DL (30.0-36.0); MCV 99.6 FL (83-99); MEAN PLAT.VOLUME 8.9 uM^3 (9.5-12.4); PLATELET COUNT 215 K/uL (156-360); RBC DIS.WIDTH-CV 14.8 % (11.8-14.6); RBC DIS.WIDTH-SD 54.1 % (39-53); RED BLOOD COUNT 2.78 M/uL (3.80-5.20); WHITE BLOOD COUNT 4.3 K/uL (4.1-10.2)
[2016-09-14 07:51] LABS: ALKALINE PHOSPHATASE 76 IU/L (3-129); ANION GAP 8 MEQ/L (2-14); CHLORIDE 114 MEQ/L (99-109); GFR ESTIMATE (CALCULATED) > 59 mL/min/; GLUCOSE 142 mg/dL (70-99); POTASSIUM 4.3 MEQ/L (3.7-5.4); SAMPLE HEMOLYSIS CHECK 0; SAMPLE ICTERIC CHECK 0; SAMPLE LIPEMIA CHECK 0; SODIUM 140 MEQ/L (136-147); TOTAL BILIRUBIN 0.3 MG/DL (0.0-1.0); UREA NITROGEN (BUN) 12 mg/dL (9-23)
[2016-09-14 11:00] VITALS: BP 110/65
[2016-09-14] MEDS ORDERED: BACTROBAN OINTM22 GM TP (11:48)
[2016-09-14] MEDS ORDERED: CLEOCIN300 MG PO (11:49)
[2016-09-14 13:10] VITALS: BP 119/64
== END 2016-09-14 14:22 ==
LOC: EME → EDBD 21:22 → EME 21:22 → 5EAST 09-14 01:19 → EDOF 09-14 01:19 → 5EAST 09-14 02:49
PROVIDERS: Emergency Medicine; Internal Medicine
DX: L03.114 Cellulitis of left upper limb (principal); N39.0 Urinary tract infection, site not specified; J44.9 Chronic obstructive pulmonary disease, unspecified; Z99.81 Dependence on supplemental oxygen; Z86.718 Personal history of other venous thrombosis and embolism; Z86.711 Personal history of pulmonary embolism; Z79.01 Long term (current) use of anticoagulants; F10.10 Alcohol abuse, uncomplicated; F03.90 Unspecified dementia, unspecified severity, without behavioral disturbance, psychotic disturbance, mood disturbance, and anxiety; F31.9 Bipolar disorder, unspecified; F41.9 Anxiety disorder, unspecified; F17.210 Nicotine dependence, cigarettes, uncomplicated; Z82.49 Family history of ischemic heart disease and other diseases of the circulatory system; Z88.0 Allergy status to penicillin; Z88.8 Allergy status to other drugs, medicaments and biological substances
CPT/HCPCS: 71020; 80048; 80053; 81003; 83605; 84999; 85025; 85027; 87040; 87086; 94799; 99202; 99281; 99285; G0378; J0696; J1100; J1200; J2270; J2405; J7030; J7050

== ENCOUNTER 2017-08-03 18:06 | Emergency (ER) | payer OTHER ==
[~2017-08-03] VITALS: Ht 167.6 cm; Wt 66.1 kg
[~2017-08-03 18:06] MED LIST changes: +BACTROBAN OINTM22 GM TP; +CLEOCIN300 MG PO; +DOXYCYCLINE HY100 MG PO; +XARELTO10 MG PO
[2017-08-03 19:03] LABS: HEMATOCRIT 36.8 % (36.0-46.0); HEMOGLOBIN 12.2 G/DL (11.9-15.5); MCH 29.8 PG (29.0-34.0); MCHC 33.2 G/DL (30.0-36.0); PLATELET COUNT 305 K/uL (156-360); RBC DIS.WIDTH-CV 15.5 % (11.8-14.6); RBC DIS.WIDTH-SD 51.7 % (39-53); RED BLOOD COUNT 4.09 M/uL (3.80-5.20); WHITE BLOOD COUNT 5.1 K/uL (4.1-10.2)
[2017-08-03 19:19] LABS: ALBUMIN 3.5 g/dL (3.2-4.8); CHLORIDE 106 mEq/L (99-109)
[2017-08-03 19:20] LABS: POTASSIUM 4.4 mEq/L (3.7-5.4); SODIUM 141 mEq/L (136-147)
[2017-08-03 19:22] LABS: GLUCOSE 93 mg/dL (70-99); TOTAL PROTEIN 6.7 g/dL (6.4-8.3)
[2017-08-03 19:24] LABS: TOTAL BILIRUBIN 0.3 mg/dL (0.0-1.0)
[2017-08-03 19:25] LABS: ALKALINE PHOSPHATASE 104 IU/L (3-129); CREATININE 1.1 mg/dL (0.6-1.3); GFR ESTIMATE (CALCULATED) 54 mL/min/
[2017-08-03 19:27] LABS: AST (GOT) 13 IU/L (2-34); UREA NITROGEN (BUN) 16 mg/dL (9-23)
[2017-08-03 19:28] LABS: ALT (GPT) 5 IU/L (3-49)
[2017-08-03 21:04] LABS: APPEARANCE SL.HAZY ((CLEAR)); BILIRUBIN NEGATIVE; BLOOD NEGATIVE; COLOR YELLOW ((YELLOW)); GLUCOSE (STRIP) NEGATIVE; KETONES NEGATIVE; LEUKOCYTES LARGE; NITRITE NEGATIVE; PROTEIN (STRIP) NEGATIVE; SPECIFIC GRAVITY 1.013 (1.000-1.030)
[2017-08-03 21:13] LABS: BACTERIA 2+ /HPF; EPITHELIAL CELLS 2+ /HPF; MUCUS TRACE /LPF; RED BLOOD CELLS 0-5 /HPF (0-5); UCUL ADDED? YES; WHITE BLOOD CELLS TNTC /HPF (0-5)
[2017-08-03 22:28] LABS: INTER. NORMALIZED RATIO 1.4
[2017-08-03 22:30] LABS: PTT 43.2 SEC (25-37)
[2017-08-03] MEDS ORDERED: CLEOCIN150 MG PO (23:26)
[2017-08-04 00:15] VITALS: BP 111/69
== END 2017-08-04 00:16 | disposition home or self-care (01) ==
LOC: EME 18:06
PROVIDERS: Physician Assistant Medical
DX: I82.411 Acute embolism and thrombosis of right femoral vein (principal); Z86.718 Personal history of other venous thrombosis and embolism; Z79.01 Long term (current) use of anticoagulants; G30.9 Alzheimer's disease, unspecified; F02.80 Dementia in other diseases classified elsewhere, unspecified severity, without behavioral disturbance, psychotic disturbance, mood disturbance, and anxiety; I11.0 Hypertensive heart disease with heart failure; I50.9 Heart failure, unspecified; I25.10 Atherosclerotic heart disease of native coronary artery without angina pectoris; I25.2 Old myocardial infarction; J44.9 Chronic obstructive pulmonary disease, unspecified; M79.7 Fibromyalgia; K21.9 Gastro-esophageal reflux disease without esophagitis; F41.9 Anxiety disorder, unspecified; F31.9 Bipolar disorder, unspecified; F32.9 Major depressive disorder, single episode, unspecified; Z87.891 Personal history of nicotine dependence; Z87.442 Personal history of urinary calculi; Z95.5 Presence of coronary angioplasty implant and graft; Z85.828 Personal history of other malignant neoplasm of skin; Z88.5 Allergy status to narcotic agent; Z88.2 Allergy status to sulfonamides; Z88.1 Allergy status to other antibiotic agents; Z88.0 Allergy status to penicillin
CPT/HCPCS: 80053; 81003; 85027; 85610; 85730; 87077; 87086; 87186; 93971; 99281; 99284